=== PATIENT | female | born 1965 | race Caucasian/White ===

== ENCOUNTER 2016-08-02 11:41 | Observation (INO) | payer OTHER ==
[2016-08-01 10:46] LABS: BASOPHILS 0.7 %; BASOPHILS ABSOLUTE 0.04 10/3/uL (0.0-0.16); EOSINOPHILS 0.8 %; EOSINOPHILS ABSOLUTE 0.05 10/3/uL (0.0-0.53); HEMATOCRIT 37.5 % (36.0-48.0); HEMOGLOBIN 13.4 g/dL (12.0-16.0); IMMATURE GRANULOCYTES 0.2 %; IMMATURE GRANULOCYTES ABSOLUTE 0.01 10/3/uL (0.0-0.11); LYMPHOCYTES 38.2 %; LYMPHOCYTES ABSOLUTE 2.29 10/3/uL (0.67-4.30); MANUAL DIFF NO %; MEAN CORPUS HGB CONC 35.7 g/dL (32.0-36.0); MEAN CORPUSCULAR HEMOGLOB 32.1 pg (26.0-34.0); MEAN CORPUSCULAR VOLUME 89.7 fL (80-100); MONOCYTES 7.2 %; MONOCYTES ABSOLUTE 0.43 10/3/uL (0.21-1.20); NEUTROPHILS 52.9 %; NEUTROPHILS ABSOLUTE 3.17 10/3/uL (2.02-8.40); PLATELET COUNT 301 10/3/uL (150-400); RBC DISTRIBUTION WIDTH 12.1 % (12.0-16.0); RED CELL COUNT 4.18 10/6/uL (4.0-5.6)
[2016-08-01 10:52] LABS: PARTIAL THROMBO TIME 28.6 SEC (22.5-37.2); PROTIME (NOT ORD) 13.5 SEC (12.0-14.5)
[2016-08-01 11:05] LABS: PFA (COL/EPI) 110 SEC (72-180)
[2016-08-01 11:10] LABS: A/G RATIO 1.3 (0.7-1.9); BUN (BLOOD UREA NITROGEN) 11 MG/DL (6-23); CALCIUM, SERUM 9.4 MG/DL (8.5-10.4); CHLORIDE, SERUM 108 MMOL/L (96-112); CO2 (CARBON DIOXIDE) 29 MMOL/L (24-34); CREATININE 0.78 MG/DL (0.55-1.02); GFR AFRICAN AMERICAN 103 ML/MIN (>=60); GFR NON AFRICAN AMERICAN 89 ML/MIN (>=60); GLUCOSE, SERUM 98 MG/DL (60-99); POTASSIUM, SERUM 4.1 MMOL/L (3.5-5.3); SGOT(AST) 21 U/L (5-40); SGPT(ALT) 43 U/L (5-65); SODIUM, SERUM 142 MMOL/L (135-148); TOTAL BILIRUBIN 0.6 MG/DL (0-1.2)
[2016-08-01 11:11] LABS: ALKALINE PHOSPHATASE 85 U/L (45-117)
--- NOTE | ~2016-08-02 | OP ---
Record Of Operation [facility] [address] [place]. [address] NAME: HUSSAIN EVANS : 69 STATUS : ADM Deb PAT#: [id number] AGE: 51 ADM/REG DATE : 08/02/16 MR#: [id number] REPORT SERV DATE: 08/03/16 DICTATED BY: EMILE NAVA DATE: 08/02/16 REPORT STATUS : Draft TRANSCRIBED BY: MODAlessandra DATE: 08/02/16 DATE OF PROCEDURE: 08/02/2016 POSTOPERATIVE DIAGNOSIS: Right breast invasive ductal cancer. POSTOPERATIVE DIAGNOSIS: Right breast invasive ductal cancer. PROCEDURE: Bilateral skin sparing mastectomy and right axillary sentinel lymph node biopsy. INDICATION FOR THE PROCEDURE: Ms. Evans is a healthy 51-year-old female, who had asymptomatic screening mammogram showing two masses in the right breast. The largest mass was biopsied showing an invasive ductal cancer grade 1, ERPR positive, HER 2 negative with a gross fraction of only 10%. Unfortunately on the MRI, the patient has 7 cm of multinodular disease, and a mastectomy was required. The patient decided on a prophylactic mastectomy on the left side. She has met with Dr. Hitchcock, and we are planning on immediate first- stage reconstruction. She presented for lymphoscintigraphy scan earlier today showing good uptake in a single lymph node in the right axilla. OPERATIVE FINDINGS: After appropriate consent was on the chart, the patient was taken to the operating room in supine position. She was placed under general anesthesia without any complications. The gamma probe was placed to the right axilla and good uptake noted. Methylene blue was not utilized. The bilateral chest wall was prepped and draped in sterile fashion. The right breast mastectomy was performed first. The lines for incision had been marked on the patient's skin by Dr. Hitchcock's team prior to starting. An incision was made in elliptical fashion with extensions of that incision both medially and laterally. The plan is for this to be a Passot type mastectomy with reconstruction and therefore, he will be utilizing the inferior flap for autologous coverage of the implant. The incision was made and sharp dissection carried down to the level of breast parenchyma with plasma blade. Dissection was carried out to the extent of the breast parenchyma in all directions into the pectoralis major fascia. The fascia was taken off the muscle of the breast intact. The breast divided from the axillary fat pad at the axillary tail. The specimen was marked with a suture in the axillary tail, and one at the 12 o'clock position skin, it was sent for permanent pathology. The axillary sentinel node biopsy was performed. One axillary lymph node was excised. Its ex-vivo count was 47,211. It was sent for immediate evaluation by pathology. Pathology noted there were actually two small lymph nodes in the specimen, both negative for obvious malignancy. The wound was copiously irrigated with warm saline and hemostasis achieved. It was packed with a wet lap sponge. Attention was then carried to the left mastectomy. An incision was made in elliptical fashion with extension laterally and medially similar to the right side. Sharp dissection carried down to the level of breast parenchyma and flaps created to the extent of the breast parenchyma in all directions with plasma blade. The dissection was carried down to the pectoralis major fascia which was taken off the muscle of the breast intact. The breast was divided from the axillary fat pad and the axillary tail. It was marked with sutures and sent for permanent pathology. The wound was copiously irrigated with warm saline and hemostasis achieved. A wet lap sponge was placed. At this portion of the case, Dr. Oli Hitchcock, came in for his surgery. Please see his dictation for further details. At the end of my portion of the case, all Record Of Operation [address] [address] NAME: HUSSAIN EVANS : 69 STATUS : ADM Deb PAT#: [id number] AGE: 51 ADM/REG DATE : 08/02/16 MR#: [id number] REPORT SERV DATE: 08/03/16 DICTATED BY: EMILE NAVA DATE: 08/02/16 REPORT STATUS : Draft TRANSCRIBED BY: ADRIAN DATE: 08/02/16 counts are correct. ESTIMATED BLOOD LOSS: 100 mL. COMPLICATIONS: None. SPECIMEN: Bilateral breast right axillary sentinel node x1. SIDRA/ADRIAN Emile Nava MD / [id number] CC: MD Nanci Zuñiga M.D. [facility] DYANA AMEZQUITA
--- NOTE | ~2016-08-02 | OP ---
Record Of Operation [facility] [address] [place]. [address] NAME: HUSSAIN EVANS : 69 STATUS : ADM Deb PAT#: [id number] AGE: 51 ADM/REG DATE : 08/02/16 MR#: [id number] REPORT SERV DATE: 08/03/16 DICTATED BY: HOPE HITCHCOCK DATE: 08/03/16 REPORT STATUS : Draft TRANSCRIBED BY: MODAlessandra DATE: 08/03/16 DATE OF PROCEDURE: 08/02/2016 PREOPERATIVE DIAGNOSIS: Surgical absence of the breast, morbid obesity, and history of breast cancer. POSTOPERATIVE DIAGNOSIS: Surgical absence of the breast, morbid obesity, and history of breast cancer. PROCEDURES: Bilateral auto augmentation breast reconstruction implant based. INDICATIONS AND FINDINGS OF THE PROCEDURE: This 51-year-old female, presents with anticipated bilateral mastectomy. She is going to undergo a Passot type auto augmentation. DETAILS OF THE PROCEDURE: The patient presents on the operating table after bilateral mastectomy, our attention was immediately turned to the right breast. The inferior flap was de-epithelialized, divided, fixed at the inframammary crease with 0 PDS, and then the pectoralis muscle was released. The flap was then sewn to the pectoralis muscle. She was blocked with Ropivacaine, irrigated with Hibiclens solution, and 850 mL tissue topology teacher was then placed behind the AlloDerm muscle flap construct, fixed into place and the inferior flap was wrapped around it. The implant was then filled to 450. The superior flap was then brought over the inferior flap in a [id number] fashion creating a central vertical optic incision. She was then inset with multiple layers of 3-0 PDS and Monocryl through to an intracuticular in the skin. Our attention was turned contralaterally where the similar procedure was carried out. The inferior flap was de-epithelialized. The pectoralis muscle was released. The flap muscle construct was created and then 850 was placed behind the muscle AlloDerm construct. With filling of the implant, there was noted to be a defect in the implant at the site of the implant fixation tap. This was removed. A 750 was replaced, fixed, and filled to 450. She was irrigated on multiple times with Hibiclens irrigation, ropivacaine blocks were obtained, drains were placed, and the soft tissue envelope was reconstructed in a [id number] fashion with multiple layers of 3-0 PDS and Monocryl through to an intracuticular in the skin. She was cleansed with peroxide. Nitroglycerin paste dry dressings were placed. She was remanded to the recovery room in stable condition. SPONGE COUNTS: All sponge and needle counts were correct. SYLVIA/ADRIAN Hope Hitchcock M.D. / [id number] CC: Record Of Operation [address] [address] NAME: HUSSAIN EVANS : 69 STATUS : ADM Deb PAT#: [id number] AGE: 51 ADM/REG DATE : 08/02/16 MR#: [id number] REPORT SERV DATE: 08/03/16 DICTATED BY: HOPE HITCHCOCK DATE: 08/03/16 REPORT STATUS : Draft TRANSCRIBED BY: ADRIAN DATE: 08/03/16 MD LELA Zuñiga KIMBERLY ANNE
[~2016-08-02 11:41] MED LIST: ALEVE220 MG PO; FISH OIL1200 MG PO; FOLIC ACID800 MCG PO; NORV5 PO; VITAMIN B-122500 MCG SL
[2016-08-03] MEDS ORDERED: PERCOCET 7.5/321 TAB PO (11:07)
[2016-08-03] MEDS ORDERED: K500 PO (11:07)
[2016-08-03] MEDS ORDERED: AT25 PO (11:08)
== END 2016-08-04 15:49 | disposition home or self-care (01) ==
LOC: SDC 11:41 → 5SO 22:22
PROVIDERS: Surgery Surgery of the Hand; Surgery Surgical Oncology
PROC: 07B50ZX Excision of Right Axillary Lymphatic, Open Approach, Diagnostic (ICD-10-PCS; 2016-08-02)
PROC: 0H0V07Z Alteration of Bilateral Breast with Autologous Tissue Substitute, Open Approach (ICD-10-PCS; principal; 2016-08-02 14:15)
PROC: 0HTV0ZZ Resection of Bilateral Breast, Open Approach (ICD-10-PCS; 2016-08-02 14:15)
DX: C50.911 Malignant neoplasm of unspecified site of right female breast (principal); E66.01 Morbid (severe) obesity due to excess calories; Z85.3 Personal history of malignant neoplasm of breast; I10 Essential (primary) hypertension; Z90.710 Acquired absence of both cervix and uterus
CPT/HCPCS: 71020; 78195; 80053; 85025; 85576; 85610; 85730; 88307; 88333; 88334; 88342; 93005; 96374; 96375; 96376; A9270-GY; A9541; C1769; C1789; G0378; J0330; J0690; J1885; J2250; J2270; J2405; J2550; J2795; J3010